=== PATIENT | male | born 1980 | race Two or more races ===

== ENCOUNTER 2017-05-18 12:13 | Day surgery (SDC) | payer OTHER ==
[2017-05-18] MEDS ORDERED: MIDAZOLAM 2 MG/2 ML VIAL ONE (12:57)
[2017-05-18] MEDS ORDERED: fentaNYL 100 MCG/2 ML INJ ONE (12:58)
[2017-05-18] MEDS ORDERED: TRIAMCINOLONE ACETONIDE 200 MG/5 ML MDV IM ONE (13:55)
[2017-05-18 14:27] VITALS: RESP 16; O2SAT 96
[2017-05-18 14:33] VITALS: BP 153/115; PULSE 71
== END 2017-05-18 14:44 | disposition home or self-care (01) ==
LOC: FIMAGING 12:13
PROVIDERS: ATTEND Physician Assistant
PROC: 3E0S33Z Introduction of Anti-inflammatory into Epidural Space, Percutaneous Approach (ICD-10-PCS; principal; 2017-05-18 14:07)
PROC: 3E0S3BZ Introduction of Anesthetic Agent into Epidural Space, Percutaneous Approach (ICD-10-PCS; principal; 2017-05-18 14:07)
DX: R52 Pain, unspecified (principal)
CPT/HCPCS: J2250; J3010; J3301